=== PATIENT | female | born 1985 | race Caucasian/White ===

== ENCOUNTER 2018-06-17 22:26 | Observation (INO) ==
[2018-06-17] MEDS ORDERED: MethylPREDNISolone Sod Succinate Inj 125 MG/2 ML Vial IV.PUSH ONE (22:36)
[2018-06-17 22:59] LABS: Baso % (Auto) 0.3 % (0.0-2.0); Eos # (Auto) 0.4 th/mm3 (0.0-0.4); Eos % (Auto) 3.3 % (0.0-4.0); Hematocrit 40.5 % (35.0-46.0); Lymph # (Auto) 1.2 th/mm3 (1.0-4.8); Lymph % (Auto) 10.1 % (9.0-44.0); Mean Corpuscular HGB Conc 32.2 % (32.0-36.0); Mean Corpuscular Hemoglobin 29.4 pg (27.0-34.0); Mean Corpuscular Volume 91.2 fL (80.0-100.0); Mean Platelet Volume 9.4 fL (7.0-11.0); Mono # (Auto) 0.9 th/mm3 (0.0-0.9); Mono % (Auto) 7.3 % (0.0-8.0); Neut # (Auto) 9.7 th/mm3 (1.8-7.7); Platelet Count 299 th/mm3 (150-450); Red Blood Count 4.44 mil/mm3 (4.00-5.30); Red Cell Distribution Width 12.4 % (11.6-17.2); White Blood Count 12.2 th/mm3 (4.0-11.0)
[2018-06-17 23:05] LABS: Chloride 105 meq/L (98-107); Potassium 3.5 meq/L (3.5-5.1); Sodium 140 meq/L (136-145)
[2018-06-17 23:09] LABS: Albumin 3.8 g/dL (3.4-5.0); Anion Gap 9 meq/L (5-15); Blood Urea Nitrogen 9 mg/dL (7-18); Calcium 8.6 mg/dL (8.5-10.1); Carbon Dioxide 26.2 meq/L (21.0-32.0); Glucose,Random 97 mg/dL (74-106)
[2018-06-17 23:12] LABS: Alanine Aminotransferase 21 U/L (10-53); Aspartate Aminotransferase 15 U/L (15-37); Glomerular Filtration Rate Greater Than 89 mL/min (>89)
[2018-06-17 23:14] LABS: Total Protein 7.9 g/dL (6.4-8.2)
[2018-06-17 23:15] LABS: Alkaline Phosphatase 60 U/L (45-117)
--- NOTE | 2018-06-17 23:27 | XR ---
EXAM DATE: 06/17/2018 11:23 PM EST AGE/SEX: 33 years / Female INDICATIONS: Cough. CLINICAL DATA: This is the patient's initial encounter. Patient reports that signs and symptoms have been present for 3 days and indicates a pain score of 0/10. MEDICAL/SURGICAL HISTORY: Asthma. None. COMPARISON: No prior exams available for comparison. FINDINGS: A single AP view of the chest demonstrates the lungs to be symmetrically aerated without evidence of mass, infiltrate or effusion. The cardiomediastinal contours are unremarkable. Osseous structures a re intact. CONCLUSION: No acute cardiopulmonary process. Electronically signed by: Josh Mart MD Board Certified Radiologist 06/17/2018 11:25 PM EST
[2018-06-17] MEDS ORDERED: Acetaminophen 325 MG Tablet PO PRN (23:58)
[2018-06-17] MEDS ORDERED: Bisacodyl 10 MG Supp RECTAL PRN (23:58)
[2018-06-17] MEDS ORDERED: Sod Chloride 0.9% Inj 1,000 ML IV.CONT ONE (23:59)
--- NOTE | 2018-06-18 01:15 | ED ---
HPI General Chief Complaint: Shortness of Breath/Dyspnea Stated Complaint: sob X2days Time Seen by Provider: 06/17/18 22:31 Source: patient Mode of arrival: ambulatory Limitations: no limitations History of Present Illness 3 children with a history of asthma presents emerged having shortness of breath cough cold symptoms ongoing for the past 5 days or so. Symptoms been steadily worsening. She is using her inhaler regularly. She went to an urgent care who gave her a prescription for steroids, and has been taking steroids for the past 48 hours. Despite this she is had worsening shortness of breath, wheezing. She is using her nebulizers at home every hour to 2. No definite fevers. Had been feeling generally well and healthy before the onset of the symptoms. Overall asthma is giving her less trouble over the past couple years. No other complaints. Related Data Allergies Allergy/AdvReac Type Severity Reaction Status Date / Time shellfish derived Allergy Severe Anaphylaxis Unverified 01/31/17 13:10 iodine Allergy Unknown Unverified 01/31/17 13:10 penicillin G Allergy Unknown Unverified 01/31/17 13:10 potassium iodide Allergy Unknown Unverified 01/31/17 13:10 povidone-iodine Allergy Unknown Unverified 01/31/17 13:10 sodium iodide Allergy Unknown Unverified 01/31/17 13:10 sodium iodide Allergy Unknown Unverified 01/31/17 13:10 Review of Systems ROS: all other systems reviewed are negative [facility] Social History Social History Substance History: No History of Abuse Smoking Status: Never smoker How Often Do You Have a Drink Containing Alcohol: Monthly or less Recent Out of Country Travel within the Last 8 Weeks: No Immunization History Tetanus Immunization: <5 Years Exam Narrative Exam Narrative: GENERAL: 33-year-old woman, moderate respiratory distress. SKIN: Focused skin assessment warm/dry. HEAD: Atraumatic. Normocephalic. EYES: Pupils equal and round. No scleral icterus. No injection or drainage. ENT: No nasal bleeding or discharge. Mucous membranes pink and moist. NECK: Trachea midline. No JVD. CARDIOVASCULAR: Rapid heart rate. No murmur appreciated. RESPIRATORY: Moderate respiratory distress. Mild diffuse wheezing. GASTROINTESTINAL: Abdomen soft, non-tender, nondistended. Hepatic and splenic margins not palpable. MUSCULOSKELETAL: No obvious deformities. No clubbing. No cyanosis. No edema. NEUROLOGICAL: Awake and alert. No obvious cranial nerve deficits. Motor grossly within normal limits. Normal speech. PSYCHIATRIC: Anxious appearing. Course Initial Documented Vital Signs Temperature 98.5 F 06/17/18 22:35 Pulse Rate 115 H 06/17/18 22:35 Respiratory Rate 22 06/17/18 22:35 Blood Pressure 107/69 06/17/18 22:35 Pulse Oximetry 96 06/17/18 22:35 Last Documented Vital Signs Temperature 98.5 F 06/17/18 22:35 Pulse Rate 124 H 06/17/18 23:34 Respiratory Rate 24 06/17/18 23:34 Blood Pressure 96/56 L 06/17/18 23:34 Pulse Oximetry 95 06/17/18 23:34 Medical Decision Making MDM Narrative Medical decision making narrative: 31-year-old woman with asthma exacerbation, worsening despite outpatient treatment with antibiotics and steroids. Minimal improvement here. Still with mild to moderate respiratory distress. Some history of anxiety. Some improvement with Ativan. Flu negative. Chest x-ray negative. Recommend observation for persistent asthma symptoms, failing outpatient therapy. Medical Screen Exam Complete: Yes Emergency Medical Condition: Yes Lab Data Lab results reviewed: Yes I reviewed the patient's lab results. Result diagrams: 06/17/18 22:54 06/17/18 22:54 Lab Results 06/17/18 06/17/18 Range/Units 22:54 22:54 CBC w Diff Auto diff final WBC 12.2 H (4.0-11.0) th/mm3 RBC 4.44 (4.00-5.30) mil/mm3 Hgb 13.0 (11.6-15.3) gm/dL Hct 40.5 (35.0-46.0) % MCV 91.2 (80.0-100.0) fL MCH 29.4 (27.0-34.0) pg MCHC 32.2 (32.0-36.0) % RDW 12.4 (11.6-17.2) % Plt Count 299 (150-450) th/mm3 MPV 9.4 (7.0-11.0) fL Neut % (Auto) 79.0 H (16.0-70.0) % Lymph % (Auto) 10.1 (9.0-44.0) % [place] % (Auto) 7.3 (0.0-8.0) % Eos % (Auto) 3.3 (0.0-4.0) % Baso % (Auto) 0.3 (0.0-2.0) % Neut # (Auto) 9.7 H (1.8-7.7) th/mm3 Lymph # (Auto) 1.2 (1.0-4.8) th/mm3 [place] # (Auto) 0.9 (0.0-0.9) th/mm3 Eos # (Auto) 0.4 (0.0-0.4) th/mm3 Baso # (Auto) 0.0 (0.0-0.2) th/mm3 WBC Differential . Differential Comment . Sodium 140 (136-145) meq/L Potassium 3.5 (3.5-5.1) meq/L Chloride 105 (98-107) meq/L Carbon Dioxide 26.2 (21.0-32.0) meq/L Anion Gap 9 (5-15) meq/L BUN 9 (7-18) mg/dL Creatinine 0.75 (0.50-1.00) mg/dL Estimated GFR Greater than 89 (>89) mL/min Random Glucose 97 (74-106) mg/dL Calcium 8.6 (8.5-10.1) mg/dL Total Bilirubin 0.3 (0.2-1.0) mg/dL AST 15 (15-37) U/L ALT 21 (10-53) U/L Alkaline Phosphatase 60 (45-117) U/L Total Protein 7.9 (6.4-8.2) g/dL Albumin 3.8 (3.4-5.0) g/dL Beta HCG, Qual Less than 1.00 (0-5) mIU/mL Imaging Data Radiologist's impression: Chest X-Ray 06/17/18 22:36 CONCLUSION: No acute cardiopulmonary process. Negative. Discharge Plan Discharge Disposition Patient Disposition: ED Admit(ED Internal Use Only) Discharge Order Discharge Orders: ED Use Only Admit Order (Routine); Ordered 06/17/18 Ordered By: Jovani Johnson Physicians Team ED Provider: Jovani Johnson Primary Care Provider: NON STAFF,PROVIDER Attending Provider: Melodie Moy Discharge Interventions Interventions: Vital Signs Last Done: 06/17/18 23:34 Status ED Status: Admitted Observation Patient
[2018-06-18] MEDS ORDERED: guaiFENesin/Dextromethorphan 200 MG/20 MG 10 ML UDC PO PRN (02:02)
[2018-06-18] MEDS: MethylPREDNISolone Sod Succinate Inj 40 MG/ML Vial IV.PUSH SCH ×3 (04:17→16:13)
[2018-06-18 07:52] LABS: Baso % (Auto) 0.2 % (0.0-2.0); Eos % (Auto) 0.1 % (0.0-4.0); Hematocrit 38.1 % (35.0-46.0); Hemoglobin 12.7 gm/dL (11.6-15.3); Lymph # (Auto) 0.3 th/mm3 (1.0-4.8); Lymph % (Auto) 3.2 % (9.0-44.0); Mean Corpuscular HGB Conc 33.3 % (32.0-36.0); Mean Corpuscular Hemoglobin 30.9 pg (27.0-34.0); Mean Corpuscular Volume 92.8 fL (80.0-100.0); Mean Platelet Volume 9.7 fL (7.0-11.0); Mono # (Auto) 0.1 th/mm3 (0.0-0.9); Mono % (Auto) 0.8 % (0.0-8.0); Neut % (Auto) 95.7 % (16.0-70.0); Platelet Count 253 th/mm3 (150-450); Red Blood Count 4.11 mil/mm3 (4.00-5.30); Red Cell Distribution Width 12.8 % (11.6-17.2); White Blood Count 10.4 th/mm3 (4.0-11.0)
[2018-06-18 08:19] LABS: Chloride 109 meq/L (98-107); Potassium 3.7 meq/L (3.5-5.1); Sodium 140 meq/L (136-145)
[2018-06-18 08:22] LABS: Albumin 3.4 g/dL (3.4-5.0); Anion Gap 6 meq/L (5-15); Calcium 8.3 mg/dL (8.5-10.1); Carbon Dioxide 24.8 meq/L (21.0-32.0); Glucose,Random 168 mg/dL (74-106)
[2018-06-18 08:23] LABS: Blood Urea Nitrogen 7 mg/dL (7-18)
[2018-06-18 08:25] LABS: Alanine Aminotransferase 18 U/L (10-53)
[2018-06-18 08:26] LABS: Aspartate Aminotransferase 15 U/L (15-37); Glomerular Filtration Rate Greater Than 89 mL/min (>89)
[2018-06-18 08:27] LABS: Total Protein 7.1 g/dL (6.4-8.2)
[2018-06-18 08:29] LABS: Alkaline Phosphatase 56 U/L (45-117)
[2018-06-18] MEDS ORDERED: Senna/Docusate Sodium 8.6/50 MG Tablet PO SCH (09:00)
[2018-06-18] MEDS ORDERED: Budesonide-Formoterol 160/4.5 MCG 6 GM Inhaler INH SCH (09:00)
[2018-06-18] MEDS ORDERED: Montelukast 10 MG Tablet PO ONE (09:27)
[2018-06-18] MEDS ORDERED: guaiFENesin 600 MG ER Tablet PO SCH (09:30)
--- NOTE | 2018-06-18 09:39 | P.HPIM ---
History of Present Illness Primary Care Physician: PROVIDER NON STAFF History of Present Illness: 33-year-old female with a history of chronic persistent asthma who presents with a 3-day history of dry cough occasionally productive of yellow sputum, sore throat, sinus congestion, shortness of breath. Positive sick contacts. She started a Medrol Dosepak 2 days ago, and has been using her albuterol inhaler every 2 hours without any improvement. She denies any fevers, chills, chest pain, nausea, vomiting. Review of Systems All other systems reviewed negative except as stated in HPI [facility] - History History Provided By: Patient - Medical History Medical History: Medical History (Last Updated 06/18/18 @ 09:35 by Calvin Smiley MD) Anxiety Asthma - Surgical History Surgical History: Surgical History (Last Updated 06/18/18 @ 09:35 by Calvin Smiley MD) No history of previous surgery - Family History Family History: Family History (Last Updated 06/18/18 @ 09:35 by Calvin Smiley MD) Father Hypertension Diabetes mellitus - Tobacco History Second Hand Smoke Exposure: No Smoking Status: Never smoker - Alcohol History How Often Do You Have a Drink Containing Alcohol: 2 to 4 times a month - Substance Use History Substance History: No History of Abuse - Travel History Recent Travel in the [place] Within the Last 8 Weeks: No Recent Travel Out of the Country Within the Last 8 Weeks: No - Immunization History Tetanus Immunization: <5 Years Medications and Allergies Active Medications: Active Medications Acetaminophen (Tylenol) 650 mg PO Q4H PRN PRN Reason: Temp > 100.4 Acetylcysteine (Mucomyst 20% Neb) 2 ml NEB Q6HR NEB YEHUDA Al Hydroxide/Mg Hydroxide (Milk Of Dread Liq) 30 ml PO Q12H PRN PRN Reason: Mild Constipation Albuterol (Duoneb Neb (Prn)) 1 ampul NEB Q2HR NEB PRN PRN Reason: SHORTNESS OF BREATH/WHEEZING Last Admin: 06/18/18 06:13 Dose: 1 ampul Bisacodyl (Dulcolax Supp) 10 mg RECTAL DAILY PRN PRN Reason: SEVERE CONSITIPATION Budesonide/Formoterol Fumarate (Symbicort 160/4.5 Mcg Inh) 2 puff INH BID YEHUDA Last Admin: 06/18/18 09:28 Dose: 2 puff Guaifenesin (Mucinex Er) 1,200 mg PO BID [facility] Guaifenesin/Dextromethorphan (Robitussin Dm Liq) 10 ml PO Q4H PRN PRN Reason: COUGH Last Admin: 06/18/18 02:40 Dose: 10 ml Sodium Chloride (Ns Inj) 1,000 mls @ 100 mls/hr IV.CONT .Q10H ONE Stop: 06/18/18 09:58 Last Admin: 06/18/18 01:40 Dose: 100 mls/hr Lactulose (Lactulose Liq) 30 ml PO DAILY PRN PRN Reason: SEVERE CONSITIPATION Methylprednisolone Sodium Succinate (Solumedrol Inj) 40 mg IV.PUSH Q6H [facility] Last Admin: 06/18/18 09:27 Dose: 40 mg Montelukast Sodium (Singulair) 10 mg PO ONCE ONE Stop: 06/18/18 09:28 Ondansetron HCl (Zofran Inj) 4 mg IV.PUSH Q6H PRN PRN Reason: NAUSEA OR VOMITING Senna/Docusate Sodium (Esther-Colace) 1 tab PO BID [facility] Last Admin: 06/18/18 09:28 Dose: Not Given Sennosides (Senokot) 17.2 mg PO Q12H PRN PRN Reason: Moderate Constipation Sodium Chloride (Ns Flush) 2 ml IV.FLUSH BID [facility] Last Admin: 06/18/18 09:28 Dose: 2 ml Sodium Chloride (Ns Flush) 2 ml IV.FLUSH PRN PRN PRN Reason: FLUSH AFTER USING IV ACCESS Allergies Allergy/AdvReac Type Severity Reaction Status Date / Time shellfish derived Allergy Severe Anaphylaxis Unverified 01/31/17 13:10 iodine Allergy Unknown Unverified 01/31/17 13:10 penicillin G Allergy Unknown Unverified 01/31/17 13:10 potassium iodide Allergy Unknown Unverified 01/31/17 13:10 povidone-iodine Allergy Unknown Unverified 01/31/17 13:10 sodium iodide Allergy Unknown Unverified 01/31/17 13:10 sodium iodide Allergy Unknown Unverified 01/31/17 13:10 Exam Vital signs: Vital Signs 06/17/18 22:35 06/17/18 22:44 06/17/18 22:49 Temperature 98.5 F Pulse Rate 115 H 103 H Respiratory Rate 22 20 Blood Pressure 107/69 Pulse Oximetry 96 95 06/17/18 23:27 06/17/18 23:34 06/18/18 01:29 Temperature Pulse Rate 124 H 124 H 107 H Respiratory Rate 24 20 Blood Pressure 96/56 L Pulse Oximetry 95 06/18/18 01:33 06/18/18 03:55 06/18/18 06:13 Temperature 98.5 F Pulse Rate 100 H 109 H Respiratory Rate 16 18 Blood Pressure 113/62 Pulse Oximetry 98 97 Intake & Output 06/17/18 06/18/18 06/18/18 18:59 06:59 18:59 Intake Total 240 / 240 Balance 240 / 240 Weight 51.8 kg Intake: Oral 240 / 240 Other: # Voids 2 Weight On Admission 52.404 kg Narrative: GENERAL: Patient sitting up in bed. Appears comfortable. She is coughing on exam. Alert and oriented x4. SKIN: Warm and dry. HEAD: Atraumatic. Normocephalic. EYES: Pupils equal and round. No scleral icterus. No injection or drainage. ENT: No nasal bleeding or discharge. Mucous membranes pink and moist. NECK: Trachea midline. No JVD. CARDIOVASCULAR: Regular rate and rhythm. RESPIRATORY: Wheezing bilaterally. No rhonchi. GASTROINTESTINAL: Abdomen soft, non-tender, nondistended. Hepatic and splenic margins not palpable. MUSCULOSKELETAL: Extremities without clubbing, cyanosis, or edema. No obvious deformities. NEUROLOGICAL: Awake and alert. No obvious cranial nerve deficits. Motor grossly within normal limits. Five out of 5 muscle strength in the arms and legs. Normal speech. PSYCHIATRIC: Appropriate mood and affect; insight and judgment normal. Results - Labs CBC & Chem 7: 06/18/18 07:25 06/18/18 07:25 Labs: Short CBC 06/17/18 06/18/18 Range/Units 22:54 07:25 WBC 12.2 H 10.4 (4.0-11.0) th/mm3 Hgb 13.0 12.7 (11.6-15.3) gm/dL Hct 40.5 38.1 (35.0-46.0) % Plt Count 299 253 (150-450) th/mm3 [facility] 06/17/18 06/18/18 22:54 07:25 Sodium 140 140 Potassium 3.5 3.7 Chloride 105 109 H Carbon Dioxide 26.2 24.8 BUN 9 7 Creatinine 0.75 0.62 Calcium 8.6 8.3 L Liver Function 06/17/18 06/18/18 Range/Units 22:54 07:25 Total Bilirubin 0.3 0.3 (0.2-1.0) mg/dL AST 15 15 (15-37) U/L ALT 21 18 (10-53) U/L Alkaline Phosphatase 60 56 (45-117) U/L Albumin 3.8 3.4 (3.4-5.0) g/dL - Imaging Impressions Chest X-Ray 06/17/18 22:36 CONCLUSION: No acute cardiopulmonary process. Caprini VTE Risk Assessment Caprini VTE Risk Assessment: No/Low Risk (score <= 1) Caprini Risk Assessment Model: Point Value = 1 Point Value = 2 Point Value = 3 Point Value = 5 Age 41-60 Minor surgery BMI > 25 kg/m2 Swollen legs Varicose veins or History of unexplained or recurrent spontaneous Oral contraceptives or hormone replacement Sepsis (< 1 month) Serious lung disease, including pneumonia (< 1 month) Abnormal pulmonary function Acute myocardial infarction Congestive heart failure (< 1 month) History of inflammatory bowel disease Medical patient at bed rest Age 61-74 Arthroscopic surgery Major open surgery (> 45 min) Laparoscopic surgery (> 45 min) Malignancy Confined to bed (> 72 hours) Immobilizing plaster cast Central venous access Age >= 75 History of VTE Family history of VTE Factor V Leiden Prothrombin [id number] Lupus anticoagulant Anticardiolipin antibodies Elevated serum homocysteine Heparin-induced thrombocytopenia Other congenital or acquired thrombophilia Stroke (< 1 month) Elective arthroplasty Hip, pelvis, or leg fracture Acute spinal cord injury (< 1 month) Prophylaxis Regimen: Total Risk Factor Score Risk Level Prophylaxis Regimen 0-1 Low Early ambulation 2 Moderate Order ONE of the following: *Sequential Compression Device (SCD) *Heparin 5000 units SQ BID 3-4 Higher Order ONE of the following medications: *Heparin 5000 units SQ TID *Enoxaparin/Lovenox 40 mg SQ daily (WT < 150 kg, CrCl > 30 mL/min) *Enoxaparin/Lovenox 30 mg SQ daily (WT < 150 kg, CrCl > 10-29 mL/min) *Enoxaparin/Lovenox 30 mg SQ BID (WT < 150 kg, CrCl > 30 mL/min) AND/OR *Sequential Compression Device (SCD) 5 or more Highest Order ONE of the following medications: *Heparin 5000 units SQ TID (Preferred with Epidurals) *Enoxaparin/Lovenox 40 mg SQ daily (WT < 150 kg, CrCl > 30 mL/min) *Enoxaparin/Lovenox 30 mg SQ daily (WT < 150 kg, CrCl > 10-29 mL/min) *Enoxaparin/Lovenox 30 mg SQ BID (WT < 150 kg, CrCl > 30 mL/min) AND *Sequential Compression Device (SCD) Assessment and Plan - Plan //Acute asthma exacerbation on history of severe persistent asthma. -Chest x-ray with no acute findings Sick contacts. Influenza negative -Continue on IV steroids, duo nebs = Continue as needed nebs. Will add Singulair. Will add Claritin will add Mucomyst. Will add a azithromycin. Will add guaifenesin. //Chronic anxiety. Reconcile home medications. //Leukocytosis on admission. Likely secondary to recent steroids. Discussed Condition With: Patient, nurse. H&P: Quality - VTE Deep Vein Thrombosis/Pulmonary Embolism Present on Admission: No
[2018-06-18] MEDS ORDERED: Loratadine 10 MG Tablet PO SCH (09:45)
[2018-06-18] MEDS ORDERED: Azithromycin 250 MG Tablet PO SCH (09:45)
[2018-06-18] MEDS ORDERED: RESP: Acetylcysteine 10% 4 ML Neb NEB SCH (10:00)
--- NOTE | 2018-06-18 11:51 | ECG ---
Date Performed: 06/18/2018 Time Performed: 10:48:11 PTAGE: 33 years EKG: Sinus rhythm WITH SHORT [place] INTERVAL WITH OCCASIONAL SUPRAVENTRICULAR PREMATURE COMPLEXES NONSPECIFIC ST & T-WAVE ABNORMALITY ABNORMAL ECG NO PREVIOUS TRACING DOCTOR: Guille Johansen Interpretating Date/Time 06/18/2018 11:49:48
[2018-06-18 12:18] VITALS: TEMP 97.3; O2SAT 97
[2018-06-18 17:19] VITALS: BP 104/57; PULSE 110; RESP 18
[2018-06-18] MEDS ORDERED: predniSONE 20 MG Tablet PO ONE (18:00)
== END 2018-06-18 20:00 | disposition home or self-care (01) ==
LOC: PHED 22:26 → PHEDA 22:26 → PH3 06-18 01:18
PROVIDERS: ADMIT Internal Medicine; ATTEND Internal Medicine
CPT/HCPCS: 71010; 71045; 80053; 84703; 85025; 87275; 87276; 87804; 90774; 90775; 93005; 94640; 94664; 94665; 94667; 94668; 96361; 96374; 96375; 96376; 99285; C8952; G0378; J2060; J2920; J2930; J7030; J7506; J7512